=== PATIENT | female | born 1950 | race Caucasian/White ===

== ENCOUNTER 2017-01-08 00:58 | Emergency (ER) | payer MEDICARE ==
[~2017-01-08] VITALS: Ht 157.5 cm; Wt 110.4 kg
[~2017-01-08 00:58] MED LIST: ATOR20TA9 PO; LEVO175T5 PO; LISI-170 PO; METH750T2 PO; OXYC-302 PO; PRED20TA PO; SULF1TAB23 PO
[2017-01-08 02:44] LABS: ASPARTATE AMINO TRANSFERASE 17 U/L (15-37); BLOOD UREA NITROGEN 25 mg/dL (7-18)
[2017-01-08 02:49] LABS: IS PT STATUS REG ER OR PRE ER? YES
[2017-01-08 04:47] VITALS: BP 145/62
== END 2017-01-08 04:49 | disposition home or self-care (01) ==
LOC: ED 03:07
DX: J20.9 Acute bronchitis, unspecified (principal); I10 Essential (primary) hypertension; E03.9 Hypothyroidism, unspecified; E78.5 Hyperlipidemia, unspecified; E66.9 Obesity, unspecified; Z98.84 Bariatric surgery status
CPT/HCPCS: 36415; 71010; 80053; 83880; 84484; 85025; 93005; 99285